=== PATIENT | male | born 1950 | race Caucasian/White ===

== ENCOUNTER 2017-11-24 06:41 | Day surgery (SDC) | payer OTHER ==
[2017-11-24] MEDS ORDERED: PROPOFOL 60 ML (07:41)
[2017-11-24] MEDS ORDERED: LIDOCAINE 100 MG SYRINGE (07:41)
== END 2017-11-24 11:17 | disposition home or self-care (01) ==
LOC: GIL 06:41
DX: Z12.11 Encounter for screening for malignant neoplasm of colon (principal); D12.6 Benign neoplasm of colon, unspecified; K31.7 Polyp of stomach and duodenum; K64.8 Other hemorrhoids; K57.90 Diverticulosis of intestine, part unspecified, without perforation or abscess without bleeding; I10 Essential (primary) hypertension; I25.10 Atherosclerotic heart disease of native coronary artery without angina pectoris; J45.909 Unspecified asthma, uncomplicated
CPT/HCPCS: 43239; 88309